=== PATIENT | female | born 1995 | race Hispanic/Latino ===

== ENCOUNTER 2024-06-05 16:50 | Day surgery (SDC) | payer BC ==
[2024-06-05 18:13] LABS: Bilirubin Neg (Negative); Blood, Urine Negative (Negative); Clarity Clear (Clear); Glucose, Urine (Dipstick) Normal (Negative); Ketone, Urine Negative (Negative); Leukocyte Negative (Negative); Nitrite Negative (Negative); Protein, Urine (Dipstick) Negative (Neg-Trace); Specific Gravity, Urine 1.005 (1.005-1.030); Urobilinogen Normal mg/dL (Less than 2)
[2024-06-05] MEDS ORDERED: Dextrose 5%-Lactated Ringers 1,000 ML IV SCH (18:15)
[2024-06-05 18:20] LABS: Bacteria/HPF Rare-Few HPF (None Seen); CAUTI Indications for Culture Pelvic or flank pain; RBC/HPF None Seen HPF (0-3); Squamous Epithelial 0-3 HPF (0-3); WBC/HPF None Seen HPF (0-3)
[2024-06-05 18:21] LABS: Urine Culture Reflex No No
== END 2024-06-05 19:30 | disposition home or self-care (01) ==
LOC: CSHLD/OP 16:50
PROVIDERS: ATTEND Student in an Organized Health Care Education/Training Program
DX: O99.891 Other specified diseases and conditions complicating pregnancy (principal); R10.9 Unspecified abdominal pain; R19.7 Diarrhea, unspecified; Z79.899 Other long term (current) drug therapy; Z88.2 Allergy status to sulfonamides; Z3A.28 28 weeks gestation of pregnancy
CPT/HCPCS: 81001

== ENCOUNTER 2024-08-09 16:16 | Inpatient (IN) | payer BC ==
[~2024-08-09 16:16] MED LIST: Bupivacaine 0.25% HCL 30 ML VIAL ONE; Bupivacaine HCl 0.5%/Epinephrine 1:200,000/PF 30 ml Vial ONE
[2024-08-09 16:39] VITALS: BMI 24.3
[2024-08-09 17:07] LABS: Fetal Membranes Rupture RUPTURE DETECTED (No Rupture)
[2024-08-09] MEDS ORDERED: Diphenoxylate HCl/Atropine Tablet PO PRN (17:15)
[2024-08-09] MEDS ORDERED: Misoprostol 200 MCG TAB RC PRN (17:15)
[2024-08-09] MEDS ORDERED: Carboprost 250 MCG/ML AMP IM PRN (17:15)
[2024-08-09] MEDS ORDERED: Oxytocin 30 units/NS 500 ML 500 ML IVPB SCH (17:15)
[2024-08-09] MEDS ORDERED: Methylergonovine 0.2 MG/ML VIAL IM PRN (17:15)
[2024-08-09] MEDS ORDERED: Promethazine HCl 25 MG/ML VIAL IM PRN ×2 (17:15→22:08)
[2024-08-09] MEDS ORDERED: hydrALAZINE 20 MG/ML VIAL SLOW IVP PRN (17:15)
[2024-08-09] MEDS ORDERED: fentaNYL 50 mcg/mL 1 mL Vial SLOW IVP PRN (17:16)
[2024-08-09] MEDS ORDERED: Tranexamic Acid 1,000 MG/10 ML VIAL IVP PRN (17:17)
[2024-08-09] MEDS: Lactated Ringer's 1,000 ML IV SCH (17:25)
[2024-08-09 18:28] LABS: Hematocrit 36.7 % (34.9-44.5); Hemoglobin 12.1 g/dL (12.0-15.5); Mean Corpuscular Hemoglobin 26.9 pg (27.0-33.0); Mean Corpuscular Volume 81.7 fL (81.6-98.3); Platelet Count 275 10x3/uL (150-450); RBC Distribution Width 12.3 % (11.5-14.5); Red Blood Cell (RBC) Count 4.49 10x6/uL (3.90-5.03); White Blood Cell (WBC) Count 9.8 10x3/uL (3.5-10.5)
[2024-08-09 18:59] LABS: Syphilis Antibody Nonreactive (Nonreactive); Syphilis Antibody Index 0.08 S/CO (<1.00 Non-Reactive)
[2024-08-09 19:00] LABS: HBsAg Index 0.24 S/CO (0-0.99); Hep B Surf Ag - L&D Non-Reactive S/CO (NonReactive)
[2024-08-09] MEDS: fentaNYL/Ropivacaine Epidural 100 ML ONE (21:55)
[2024-08-09] MEDS ORDERED: Ondansetron PF 4 MG/2 ML Vial IVP PRN (22:08)
[2024-08-09] MEDS ORDERED: Moisturizing Cream (Eucerin) 113 GM JAR TOP PRN (22:08)
[2024-08-09] MEDS ORDERED: Naloxone HCl 0.4 mg/ml Vial IVP PRN ×2 (22:08)
[2024-08-09] MEDS ORDERED: diphenhydrAMINE 50 MG/ML VIAL IVP PRN (22:08)
[2024-08-09] MEDS ORDERED: Acetaminophen 325 MG TAB PO PRN (22:08)
[2024-08-09] MEDS ORDERED: Lactated Ringer's 500 ML IV PRN (22:08)
[2024-08-09] MEDS ORDERED: ePHEDrine Sulfate 50 MG/10 ML VIAL SLOW IVP PRN (22:08)
[2024-08-09] MEDS ORDERED: fentaNYL 2 mcg/Ropivacaine 0.2% Epidural 100 ML CADD EPIDURAL SCH (22:15)
[2024-08-09] MEDS ORDERED: Communication Order-Pharmacy FS SCH (22:15)
[2024-08-09] MEDS: Ondansetron PF 4 MG/2 ML Vial IVP PRN (23:05)
[2024-08-10] MEDS: Oxytocin 30 units/NS 500 ML 500 ML IV SCH (00:47)
[2024-08-10] MEDS ORDERED: hydrALAZINE 20 MG/ML VIAL SLOW IVP PRN (03:52)
[2024-08-10] MEDS ORDERED: Ondansetron PF 4 MG/2 ML Vial IVP PRN (03:52)
[2024-08-10] MEDS ORDERED: Bisacodyl 10 MG SUPP PR PRN (03:52)
[2024-08-10] MEDS ORDERED: Milk Of Magnesia 30 ML UDCUP PO PRN (03:52)
[2024-08-10] MEDS: Ferrous Sulfate 325 MG TAB PO SCH (07:48)
[2024-08-10] MEDS: Docusate 100 MG CAP PO SCH (08:13)
[2024-08-10] MEDS: Ibuprofen 800 MG TAB PO SCH (08:13)
[2024-08-10] MEDS: Prenatal Vitamin 1 TAB PO SCH (08:13)
[2024-08-10] MEDS: HYDROcodone/Acetaminophen 5/325 mg Tablet PO PRN (12:36)
[2024-08-10] MEDS: Boostrix 0.5 ML (Tdap) VIAL (>/=7 yrs of age) IM ONE (15:21)
[2024-08-10] MEDS: Benzocaine-Menthol 82.5 ML CAN TOP PRN (21:17)
[2024-08-11 08:08] VITALS: BP 114/63; TEMP 98.6
== END 2024-08-11 13:45 | disposition home or self-care (01) | DRG 807 ==
LOC: CSHLD/OP 16:16 → CSHLD 17:11 → CSHPP 08-10 06:00
PROVIDERS: ADMIT Student in an Organized Health Care Education/Training Program; ATTEND Student in an Organized Health Care Education/Training Program
PROC: 10E0XZZ Delivery of Products of Conception, External Approach (ICD-10-PCS; principal; 2024-08-10)
DX: O71.4 Obstetric high vaginal laceration alone (principal); Z37.0 Single live birth; Z3A.38 38 weeks gestation of pregnancy
CPT/HCPCS: 51702; 84112; 85027; 86780; 86850; 86900; 86901; 87340; 99285; J0665; J2405; J2590; J7120